=== PATIENT | male | born 1970 | race Two or more races ===

== ENCOUNTER 2016-11-28 22:42 | Emergency (ER) | payer SELFPAY ==
[~2016-11-28] VITALS: Ht 175.3 cm; Wt 81.6 kg
[2016-11-28] MEDS: MORPHINE SULFATE 4 MG/ML DISP.SYRIN. IV/SQ PRN (23:12)
[2016-11-28] MEDS ORDERED: LIDOCAINE 2% 20 ML VIAL. ONE (23:39)
[2016-11-28] MEDS ORDERED: BUPIVACAINE 0.5% 50 ML VIAL. ONE (23:39)
[2016-11-28] MEDS ORDERED: BUPIVACAINE 0.5% 50 ML VIAL. IJ ONE (23:55)
[2016-11-28] MEDS ORDERED: LIDOCAINE 2% 20 ML VIAL. IJ ONE (23:55)
[2016-11-29] MEDS: MORPHINE SULFATE 4 MG/ML DISP.SYRIN. IV/SQ PRN (01:07)
[2016-11-29 02:20] VITALS: BP 150/90
[2016-11-29] MEDS ORDERED: HYDR-971 PO (02:20)
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
[2016-11-29] MEDS ORDERED: HYDROcodone/APAP 5/325MG 1 TAB TABLET ONE (02:33)
[2016-11-29] MEDS ORDERED: HYDROcodone/APAP 5/325MG 1 TAB TABLET PO ONE (02:45)
--- NOTE | 2016-11-29 07:24 | RAD ---
Left wrist, 3 views, 11/28/2016, 11:04 PM: History: Fall, injury There is a comminuted fracture of the distal left radius. There is moderate dorsal displacement and angulation of the major distal fracture fragments with mild impaction at the fracture site. There is a ulnar styloid fracture. Its margins are sclerotic and it may actually be old. The carpal bones appear intact. There is moderate diffuse soft tissue swelling. IMPRESSION: Displaced Colles' type fracture of the left wrist. Left wrist, 2 views, 11/29/2016, 1:23 AM: History: Postreduction evaluation There is improved alignment at the site of the distal radial fracture. The impaction has been reduced. There is mild residual dorsal angulation and displacement of the major distal fracture fragment. The ulnar styloid fractures again noted. IMPRESSION: Improved alignment of the distal radial fracture.
== END 2016-11-29 02:40 | disposition home or self-care (01) ==
LOC: ER 22:42
DX: S52.532A Colles' fracture of left radius, initial encounter for closed fracture (principal); W18.39XA Other fall on same level, initial encounter; Y93.89 Activity, other specified; Y92.89 Other specified places as the place of occurrence of the external cause; Y99.8 Other external cause status
CPT/HCPCS: 25605; 29240; 73110; 96374; 96376; 99284; J2001; J2270; J3490